=== PATIENT | female | born 1995 | race Caucasian/White ===

== ENCOUNTER 2017-02-16 11:24 | Emergency (ER) | payer OTHER, MEDICAID ==
[2017-02-16 11:41] VITALS: BP 113/66
[2017-02-16] MEDS ORDERED: Sodium Chloride 0.9% 10 ML Syringe FLUSH PRN (12:22)
--- NOTE | 2017-02-16 12:22 | EDM.PDOC ---
[id number] [id number] LIVER FAILURE, FLUID RETENTION, VOMITING Time Seen by Provider: 02/16/17 12:19 Source of Information: Reports: Patient History Limitations: Reports: No limitations - History of Present Illness INITIAL COMMENTS - FREE TEXT/NARRATIVE: pt arrived feeling very fatiqed and bloated . She has gone from a size 5 pants to a size 12. She notes some fluid retention in her legs. 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 She is now on a different immunosuppressant. Onset: gradual Duration: Day(s):, Other (pt is fatiqued and jaundiced. ) Location: Reports: abdomen, generalized Associated Symptoms: Reports: confusion, loss of appetite, nausea/vomiting, weakness - Related Data Allergies Allergy/AdvReac Type Severity Reaction Status Date / Time Sulfa (Sulfonamide Allergy Hives Verified 02/16/17 11:40 Antibiotics) Home Meds: Home Meds Cefdinir [Omnicef] 02/16/17 [History] Citalopram Hydrobromide [Celexa] 02/16/17 [History] Furosemide [Lasix] 02/16/17 [History] Magnesium Oxide [Magnesium] 02/16/17 [History] Omeprazole 02/16/17 [History] Spironolactone [Aldactone] 02/16/17 [History] Tacrolimus [Prograf] 02/16/17 [History] buPROPion [Wellbutrin SR] 02/16/17 [History] Past Medical History Gastrointestinal History: Reports: Other (see below) Other Gastrointestinal History: 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 Social & Family History - Tobacco Use Smoking Status *Q: Current Every Day Smoker Years of Tobacco use: 4 Packs/Tins Daily: 0.1 ED ROS GENERAL - Review of Systems Review Of Systems: See Below Constitutional: Reports: other (pt has gained in girth on her abdoman, ) HEENT: Reports: No symptoms Respiratory: Reports: No Symptoms Cardiovascular: Reports: No symptoms Endocrine: Reports: no symptoms GI/Abdominal: Reports: Distension, Nausea : Reports: no symptoms, other (urine is very dark, ) Musculoskeletal: Reports: no symptoms Skin: Reports: no symptoms Neurological: Reports: No Symptoms ED EXAM, GENERAL - Physical Exam Exam: See Below Free Text/Narrative:: pt arrived with a history of jaundice and fatique. She feels like her abdoman is more distended. She has a history of liver failure in the past. Exam Limited By: No limitations General Appearance: alert, mild distress, other (pt is jandiced. ) Ears: normal TMs Nose: normal inspection Throat/Mouth: Normal inspection Head: atraumatic Neck: normal inspection Respiratory/Chest: no respiratory distress Cardiovascular: regular rate, rhythm GI/Abdominal: hepatomegaly, other ( no marked tenderness) Rectal (Female) Exam: Deferred Back Exam: normal inspection Extremities: normal inspection Neurological: alert, oriented, normal cognition, other ( Pt states she has some times when she feels slightly confused) Psychiatric: depressed mood Course - Vital Signs Last Recorded V/S: Last Vital Signs Temp 36.5 C 02/16/17 11:47 Pulse 74 02/16/17 11:47 Resp 14 02/16/17 11:47 BP 113/66 02/16/17 11:47 Pulse Ox 99 02/16/17 11:47 - Orders/Labs/Meds Orders: Active Orders 24 hr Category Date Time Status Abdomen Ltd [US] Stat Exams 02/16/17 13:33 Taken Chest 2V [CR] Stat Exams 02/16/17 12:17 Taken CULTURE URINE [RM] Stat Lab 02/16/17 17:15 Received Saline Lock Insert [OM.PC] Routine Oth 02/16/17 12:22 Ordered Labs: Laboratory Tests 02/16/17 02/16/17 02/16/17 Range/Units 12:25 12:25 12:25 WBC 3.7 L (4.5-11.0) K/uL RBC 3.54 (3.30-5.50) M/uL Hgb 11.6 L (12.0-15.0) g/dL Hct 32.9 L (36.0-48.0) % MCV 93 (80-98) fL MCH 33 H (27-31) pg MCHC 35 (32-36) % Plt Count 87 L (150-400) K/uL Neut % (Auto) 63 (36-66) % Lymph % (Auto) 27 (24-44) % [place] % (Auto) 9 H (2-6) % Eos % (Auto) 1 L (2-4) % Baso % (Auto) 1 (0-1) % PT (9.5-12.0) sec INR (0.80-1.20) APTT (27.0-36.0) sec Sodium 140 (140-148) mmol/L Potassium 4.2 (3.6-5.2) mmol/L Chloride 107 (100-108) mmol/L Carbon Dioxide 26 (21-32) mmol/L Anion Gap 7.4 (5.0-14.0) mmol/L BUN 22 H (7-18) mg/dL Creatinine 0.7 (0.6-1.0) mg/dL Est Cr Clr Drug Dosing 95.93 mL/min Estimated GFR (MDRD) > 60 (>60) Glucose 86 (74-106) mg/dL Calcium 7.9 L (8.5-10.1) mg/dL Total Bilirubin 6.5 H (0.2-1.0) mg/dL AST 254 H (15-37) U/L ALT 240 H (12-78) U/L Alkaline Phosphatase 421 H (46-116) U/L Ammonia 50 H (11-32) mmol/L Total Protein 6.3 L (6.4-8.2) g/dL Albumin 2.6 L (3.4-5.0) g/dL Globulin 3.7 H (2.3-3.5) g/dL Albumin/Globulin Ratio 0.7 L (1.2-2.2) Urine Color Urine Appearance Urine pH (4.5-8.0) Ur Specific [place] (1.008-1.030) Urine Protein (NEGATIVE) mg/dL Urine Glucose (UA) (NEGATIVE) mg/dL Urine Ketones (NEGATIVE) mg/dL Urine Occult Blood (NEGATIVE) Urine Nitrite (NEGATIVE) Urine Bilirubin (NEGATIVE) Urine Urobilinogen (NORMAL) mg/dL Ur Leukocyte Esterase (NEGATIVE) Urine RBC (0-5) Urine WBC (0-5) Ur Epithelial Cells Amorphous Sediment Urine Bacteria Urine Mucus Urine Opiates Screen (NEGATIVE) Ur Oxycodone Screen (NEGATIVE) Urine Methadone Screen (NEGATIVE) Ur Propoxyphene Screen (NEGATIVE) Ur Barbiturates Screen (NEGATIVE) Ur Tricyclics Screen (NEGATIVE) Ur Phencyclidine Scrn (NEGATIVE) Ur Amphetamine Screen (NEGATIVE) U Methamphetamines Scrn (NEGATIVE) Urine MDMA Screen (NEGATIVE) U Benzodiazepines Scrn (NEGATIVE) U Cocaine Metab Screen (NEGATIVE) U Marijuana (THC) Screen (NEGATIVE) 02/16/17 02/16/17 02/16/17 Range/Units 13:10 13:10 13:22 WBC (4.5-11.0) K/uL RBC (3.30-5.50) M/uL Hgb (12.0-15.0) g/dL Hct (36.0-48.0) % MCV (80-98) fL MCH (27-31) pg MCHC (32-36) % Plt Count (150-400) K/uL Neut % (Auto) (36-66) % Lymph % (Auto) (24-44) % [place] % (Auto) (2-6) % Eos % (Auto) (2-4) % Baso % (Auto) (0-1) % PT (9.5-12.0) sec INR (0.80-1.20) APTT 33.4 (27.0-36.0) sec Sodium (140-148) mmol/L Potassium (3.6-5.2) mmol/L Chloride (100-108) mmol/L Carbon Dioxide (21-32) mmol/L Anion Gap (5.0-14.0) mmol/L BUN (7-18) mg/dL Creatinine (0.6-1.0) mg/dL Est Cr Clr Drug Dosing mL/min Estimated GFR (MDRD) (>60) Glucose (74-106) mg/dL Calcium (8.5-10.1) mg/dL Total Bilirubin (0.2-1.0) mg/dL AST (15-37) U/L ALT (12-78) U/L Alkaline Phosphatase (46-116) U/L Ammonia (11-32) mmol/L Total Protein (6.4-8.2) g/dL Albumin (3.4-5.0) g/dL Globulin (2.3-3.5) g/dL Albumin/Globulin Ratio (1.2-2.2) Urine Color Other Urine Appearance Clear Urine pH 5.0 (4.5-8.0) Ur Specific [place] 1.020 (1.008-1.030) Urine Protein Negative (NEGATIVE) mg/dL Urine Glucose (UA) Normal (NEGATIVE) mg/dL Urine Ketones Negative (NEGATIVE) mg/dL Urine Occult Blood Negative (NEGATIVE) Urine Nitrite Negative (NEGATIVE) Urine Bilirubin Moderate (NEGATIVE) Urine Urobilinogen 1 (NORMAL) mg/dL Ur Leukocyte Esterase Negative (NEGATIVE) Urine RBC 0-5 (0-5) Urine WBC 0-5 (0-5) Ur Epithelial Cells Moderate Amorphous Sediment Not seen Urine Bacteria Moderate Urine Mucus Moderate Urine Opiates Screen Negative (NEGATIVE) Ur Oxycodone Screen Negative (NEGATIVE) Urine Methadone Screen Negative (NEGATIVE) Ur Propoxyphene Screen Negative (NEGATIVE) Ur Barbiturates Screen Negative (NEGATIVE) Ur Tricyclics Screen Negative (NEGATIVE) Ur Phencyclidine Scrn Negative (NEGATIVE) Ur Amphetamine Screen Negative (NEGATIVE) U Methamphetamines Scrn Negative (NEGATIVE) Urine MDMA Screen Negative (NEGATIVE) U Benzodiazepines Scrn Negative (NEGATIVE) U Cocaine Metab Screen Negative (NEGATIVE) U Marijuana (THC) Screen Positive H (NEGATIVE) 02/16/17 Range/Units 13:23 WBC (4.5-11.0) K/uL RBC (3.30-5.50) M/uL Hgb (12.0-15.0) g/dL Hct (36.0-48.0) % MCV (80-98) fL MCH (27-31) pg MCHC (32-36) % Plt Count (150-400) K/uL Neut % (Auto) (36-66) % Lymph % (Auto) (24-44) % [place] % (Auto) (2-6) % Eos % (Auto) (2-4) % Baso % (Auto) (0-1) % PT 12.8 H (9.5-12.0) sec INR 1.20 (0.80-1.20) APTT (27.0-36.0) sec Sodium (140-148) mmol/L Potassium (3.6-5.2) mmol/L Chloride (100-108) mmol/L Carbon Dioxide (21-32) mmol/L Anion Gap (5.0-14.0) mmol/L BUN (7-18) mg/dL Creatinine (0.6-1.0) mg/dL Est Cr Clr Drug Dosing mL/min Estimated GFR (MDRD) (>60) Glucose (74-106) mg/dL Calcium (8.5-10.1) mg/dL Total Bilirubin (0.2-1.0) mg/dL AST (15-37) U/L ALT (12-78) U/L Alkaline Phosphatase (46-116) U/L Ammonia (11-32) mmol/L Total Protein (6.4-8.2) g/dL Albumin (3.4-5.0) g/dL Globulin (2.3-3.5) g/dL Albumin/Globulin Ratio (1.2-2.2) Urine Color Urine Appearance Urine pH (4.5-8.0) Ur Specific [place] (1.008-1.030) Urine Protein (NEGATIVE) mg/dL Urine Glucose (UA) (NEGATIVE) mg/dL Urine Ketones (NEGATIVE) mg/dL Urine Occult Blood (NEGATIVE) Urine Nitrite (NEGATIVE) Urine Bilirubin (NEGATIVE) Urine Urobilinogen (NORMAL) mg/dL Ur Leukocyte Esterase (NEGATIVE) Urine RBC (0-5) Urine WBC (0-5) Ur Epithelial Cells Amorphous Sediment Urine Bacteria Urine Mucus Urine Opiates Screen (NEGATIVE) Ur Oxycodone Screen (NEGATIVE) Urine Methadone Screen (NEGATIVE) Ur Propoxyphene Screen (NEGATIVE) Ur Barbiturates Screen (NEGATIVE) Ur Tricyclics Screen (NEGATIVE) Ur Phencyclidine Scrn (NEGATIVE) Ur Amphetamine Screen (NEGATIVE) U Methamphetamines Scrn (NEGATIVE) Urine MDMA Screen (NEGATIVE) U Benzodiazepines Scrn (NEGATIVE) U Cocaine Metab Screen (NEGATIVE) U Marijuana (THC) Screen (NEGATIVE) Meds: Medications Discontinued Medications Generic Name Dose Route Start Last Admin Trade Name Freq PRN Reason Stop Dose Admin Sodium Chloride 1,000 mls @ 150 mls/hr 02/16/17 13:45 02/16/17 14:22 Normal Saline IV 150 mls/hr ASDIRECTED GUSTAVO Administration Sodium Chloride 10 ml 02/16/17 12:22 02/16/17 12:27 Saline Flush FLUSH 10 ml ASDIRECTED PRN Administration Keep Vein Open - Re-Assessments/Exams Free Text/Narrative Re-Assessment/Exam: 02/16/17 14:00 pt has a bilirubin of 6.5 , Her alk phos is elevated. She has no GB. She has a urine that is not markedly infected. She has elevated liver enzymes. 02/16/17 14:52 Us shows a normal common duct. There is not alot of free acetes present. Liver is enlarged. Departure - Departure Time of Disposition: 17:20 Disposition: DC/Tfer to Acute Hospital 02 Condition: fair Clinical Impression: Liver failure, Liver transplant complication Referrals: Mik Zabala PA-C [Primary Care Provider] - Forms: ED Department Discharge Care Plan Goals: transfer to [facility]. - My Orders Last 24 Hours: My Active Orders 02/16/17 12:17 Chest 2V [CR] Stat 02/16/17 12:22 Saline Lock Insert [OM.PC] Routine 02/16/17 13:33 Abdomen Ltd [US] Stat 02/16/17 17:15 CULTURE URINE [RM] Stat - Assessment/Plan Last 24 Hours: My Active Orders 02/16/17 12:17 Chest 2V [CR] Stat 02/16/17 12:22 Saline Lock Insert [OM.PC] Routine 02/16/17 13:33 Abdomen Ltd [US] Stat 02/16/17 17:15 CULTURE URINE [RM] Stat
[2017-02-16] MEDS ORDERED: Sodium Chloride 0.9% 1,000 ML IV SCH (13:45)
--- NOTE | 2017-02-18 09:12 | CR ---
Chest 2V INDICATION: fatique , low grade temp FINDINGS: Negative chest.
== END 2017-02-16 17:22 ==
LOC: JP.ED 11:24
DX: T86.42 Liver transplant failure (principal); F17.210 Nicotine dependence, cigarettes, uncomplicated; Z94.4 Liver transplant status; Z88.2 Allergy status to sulfonamides
CPT/HCPCS: 36415; 71020; 76705; 80053; 80305; 81001; 82140; 85025; 85610; 85730; 87086; 96360; 96361; 99285; J7040; J7050